=== PATIENT | female | born 1960 | race Caucasian/White ===

== ENCOUNTER 2019-05-02 10:39 | Day surgery (SDC) | payer OTHER ==
[2019-05-02] MEDS ORDERED: LIDOCAINE 2% (SDV) 5 ML INJ (13:56)
[2019-05-02] MEDS ORDERED: PROPOFOL 40 ML (13:56)
[2019-05-02] MEDS ORDERED: MIDAZOLAM 1 MG/ML 2 ML INJ (13:56)
== END 2019-05-02 16:52 | disposition home or self-care (01) ==
LOC: GIL 10:39
DX: Z12.11 Encounter for screening for malignant neoplasm of colon (principal); D12.0 Benign neoplasm of cecum; D12.2 Benign neoplasm of ascending colon; D12.3 Benign neoplasm of transverse colon; I10 Essential (primary) hypertension; E11.9 Type 2 diabetes mellitus without complications; Z79.84 Long term (current) use of oral hypoglycemic drugs
CPT/HCPCS: 45380; 88305